=== PATIENT | female | born 1995 | race Caucasian/White ===

== ENCOUNTER 2019-08-05 21:16 | Inpatient (IN) | payer SELFPAY ==
[2019-08-05 22:13] LABS: #Eosinphils 0.1 thou/uL (0.0-0.7); #Monocytes 0.6 thou/uL (0.11-0.59); #Neutrophils 4.6 thou/uL (1.40-6.50); %Basophils 0.3 % (0.0-1.0); %Eosinophils 1.7 % (0.0-10.0); %Lymphocytes 15.8 % (21.0-51.0); %Monocytes 9.5 % (0.0-10.0); %Neutrophils 72.8 % (42.0-75.0); Mean Corpuscular Hemoglobin 29.8 pg (27.0-31.0); Mean Corpuscular Volume 87.4 fL (78.0-98.0); Mean Platelet Volume 8.5 fL (7.4-10.4); Platelet Count 203 thou/uL (130-400); RBC Distribution Width 12.3 % (11.5-14.5); Red Blood Cell (RBC) Count 4.03 mill/uL (4.20-5.40); White Blood Cell (WBC) Count 6.3 thou/uL (4.8-10.8)
[2019-08-05 22:30] LABS: Acetaminophen Less than 6.0 mcg/mL (10.0-30.0); Alcohol Less than 10 mg/dL (Less than 10); Salicylate Less than 8.0 mg/dL (15.0-30.0)
[2019-08-05 22:37] LABS: Bilirubin Negative (Negative); Blood, Urine Negative (Negative); Clarity Clear (Clear); Glucose, Urine (Dipstick) Normal (Negative); Leukocyte Negative Leu/uL (Negative); Nitrite Negative (Negative); Pregu Control Background? CLEAR/WHITE (CLR/WHITE); Pregu Control Bar Appear? YES (CONTROL BAR); Protein, Urine (Dipstick) Negative (Neg-Trace); Specific Gravity 1.008 (1.002-1.036); Urobilinogen Normal mg/dL (Less than 2)
[2019-08-05 22:38] LABS: Pregnancy Test - Urine (BHCG) Negative (Negative)
[2019-08-05 22:38] LABS: ALT (SGPT) 7 U/L (8-55); AST (SGOT) 11 U/L (5-34); Albumin 3.9 g/dL (3.5-5.0); Alkaline Phosphatase 70 U/L (40-110); Anion Gap 13 mmol/L (10-20); BUN (Urea Nitrogen) 7 mg/dL (7.0-18.7); Bilirubin, Total 0.2 mg/dL (0.2-1.2); CK (CPK) 81 U/L (29-168); Calc. Creatinine Clearance 0 mL/min (70-130); Calcium 8.5 mg/dL (7.8-10.44); Carbon Dioxide 22 mmol/L (22-29); Chloride 110 mmol/L (98-107); Estimated GFR-MDRD Greater than 90; Globulin 2.2 g/dL (2.4-3.5); Glucose 91 mg/dL (70-105); Potassium 3.6 mmol/L (3.5-5.1); Protein, Total 6.1 g/dL (6.0-8.3); Sodium 141 mmol/L (136-145)
[2019-08-05 22:53] LABS: Amphetamine Detected (NotDetected); Barbiturates Screen Not Detected (NotDetected); Benzodiazepine Screen Not Detected (NotDetected); Cocaine Metabolite Screen Not Detected (NotDetected); Medtox Control Line Valid? VALID (VALID); Medtox Reader # READER 4; Methadone Not Detected (NotDetected); Methamphetamine Detected (NotDetected); Opiate Screen Not Detected (NotDetected); Oxycodone Screen Not Detected (NotDetected); Phencyclidine (PCP) Not Detected (NotDetected); THC/Cannabinoid Screen Not Detected (NotDetected); Tricyclic Screen Detected (NotDetected)
[2019-08-05] MEDS ORDERED: Ondansetron ODT 4 MG TAB PO PRN (23:29)
[2019-08-05] MEDS ORDERED: Ondansetron PF 4 MG/2 ML Vial IVP PRN (23:29)
[2019-08-06] MEDS ORDERED: Sodium Chloride 0.9% 1,000 ML IV SCH ×2 (00:15→03:00)
--- NOTE | 2019-08-06 00:29 | PDOC.EVN ---
Event Note - Event Note Event Note: Patient discussed with CRUZ Hutchins. She smoked marijuana and took 1,000 mg of Seroquel in a deliberate suicide attempt. She is somnolent but arousable and will answer some questions. Mostly, she just wants to be left alone. She has a bit of a cough, but lungs are clear. Heart is regular. Poison control was called by the ED physician and the recommendation is for 12 hours of observation or until her mental status improves. Will admit to IMCU for closer monitoring and continue to hydrate. Will need [facility] eval prior to discharge.
[2019-08-06 01:39] LABS: Lactic Acid 1.1 mmol/L (0.5-2.2)
[2019-08-06] MEDS ORDERED: Benzonatate 100 MG CAP ONE (01:47)
[2019-08-06] MEDS: Benzonatate 100 MG CAP PO PRN (02:28)
[2019-08-06] MEDS ORDERED: Lorazepam 2 MG/ML VIAL SLOW IVP PRN (02:35)
[2019-08-06 04:17] LABS: Anion Gap 11 mmol/L (10-20); BUN (Urea Nitrogen) 4 mg/dL (7.0-18.7); Calc. Creatinine Clearance 0 mL/min (70-130); Calcium 7.8 mg/dL (7.8-10.44); Carbon Dioxide 20 mmol/L (22-29); Chloride 112 mmol/L (98-107); Estimated GFR-MDRD Greater than 90; Glucose 91 mg/dL (70-105); Potassium 3.4 mmol/L (3.5-5.1); Sodium 140 mmol/L (136-145)
[2019-08-06 04:55] LABS: #Eosinphils 0.1 thou/uL (0.0-0.7); #Lymphocytes 1.3 thou/uL (1.20-3.40); #Monocytes 0.6 thou/uL (0.11-0.59); %Basophils 0.7 % (0.0-1.0); %Lymphocytes 21.2 % (21.0-51.0); %Monocytes 9.3 % (0.0-10.0); %Neutrophils 67.8 % (42.0-75.0); Hemoglobin 10.6 g/dL (12.0-16.0); Mean Corpuscular HGB CONC 33.8 g/dL (32.0-36.0); Mean Corpuscular Hemoglobin 29.4 pg (27.0-31.0); Mean Platelet Volume 8.7 fL (7.4-10.4); Platelet Count 183 thou/uL (130-400); RBC Distribution Width 12.2 % (11.5-14.5); White Blood Cell (WBC) Count 5.9 thou/uL (4.8-10.8)
--- NOTE | 2019-08-06 07:59 | RAD ---
PORTABLE CHEST: INDICATION: Cough. FINDINGS: Patchy infiltrate in the right lower lung is noted. Heart and mediastinum unremarkable. The lung lofton are otherwise clear. IMPRESSION: Patchy right lower lung infiltrate consistent with pneumonia. Followup recommended. POS: [facility]
[2019-08-06] MEDS ORDERED: Famotidine/PF 20 mg/2ml Vial SLOW IVP SCH (09:00)
[2019-08-06 09:13] LABS: Troponin I Less than 0.010 ng/mL (< 0.028)
[2019-08-06] MEDS: 1/2 NS w/KCL 20 mEq 1,000 ML IV SCH (10:31)
--- NOTE | 2019-08-06 11:08 | PDOC.HOSPP ---
- Subjective Encounter Date: 08/06/19 Encounter Time: 11:08 Subjective: Patient drowsy from her seroquel overdose. However, arousable. She states she took the seroquel to sleep. Denies SI or HI. Reports using marijuana, smoking cigarettes and meth. No CP, SOB. - Objective Vital Signs & Weight: Vital Signs (12 hours) Temp Pulse Ox 08/06/19 07:58 99 08/06/19 06:55 100.5 F H 08/06/19 06:33 98 Weight Weight 141 lb 1.533 oz Most Recent Monitor Data Heart Rate from ECG 104 NIBP 126/74 NIBP BP-Mean 91 Respiration from ECG 23 SpO2 97 I&O: 08/05/19 08/06/19 08/07/19 06:59 06:59 06:59 Output Total 1000 0 Balance -1000 0 Result Diagrams: 08/06/19 03:47 08/06/19 03:47 Hospitalist ROS - Medication Medications: Active Medications Generic Name Dose Route Start Last Admin Trade Name Freq PRN Reason Stop Dose Admin Benzonatate 100 mg 08/06/19 01:19 08/06/19 02:28 Tessalon PO 100 mg Q8H PRN Administration Cough Potassium Chloride/Sodium Chloride 1,000 mls @ 100 mls/hr 08/06/19 08:00 10:31 1/2 Ns W/Kcl 20 Meq IV 1,000 mls .Q10H HEIDI Administration - Exam General Appearance: ill appearing General - other findings: drowsy; yet arousable ENT: normocephalic atraumatic, no oropharyngeal lesions Neck: supple, no thyromegaly, no lymphadenopathy Heart: no murmur, no gallops, no rubs Heart - other findings: tachycardia present Respiratory: CTAB, no wheezes, no rales, normal chest expansion Gastrointestinal: soft, non-tender, non-distended, normal bowel sounds Hosp A/P (1) Overdose Code(s): T50.901A - POISONING BY UNSP DRUG/MEDS/BIOL SUBST, ACCIDENTAL, INIT Status: Acute Qualifiers: Encounter type: initial encounter Injury intent: undetermined intent Qualified Code(s): T50.904A - Poisoning by unspecified drugs, medicaments and biological substances, undetermined, initial encounter Plan: Patient denies SI/HI Reports she just wanted to sleep Continue IVF and one-on-one observation Once medically stable, [facility] evaluation to determine if she needs inpatient psych hospitalization High risk due to risk of lethal arrhythmias (2) Pneumonia Code(s): J18.9 - PNEUMONIA, UNSPECIFIED ORGANISM Status: Acute Qualifiers: Pneumonia type: due to unspecified organism Laterality: right Lung location: lower lobe of lung Qualified Code(s): J18.9 - Pneumonia, unspecified organism Plan: CXR with RLL infiltrate Start PO cefdinir and PO azithromycin Duonebs PRN (3) Methamphetamine abuse Code(s): F15.10 - OTHER STIMULANT ABUSE, UNCOMPLICATED Status: Chronic Plan: Pt. reports and UDS positive for meth Has tachycardia Cycle trops Counselled regarding cessation Continue telemetry Transfer out of [facility] (4) Tobacco abuse Code(s): Z72.0 - TOBACCO USE Status: Chronic Plan: Counselled regarding cessation (5) Hypokalemia Code(s): E87.6 - HYPOKALEMIA Status: Acute Plan: Replace in IVF - Plan DVT proph w/lovenox
[2019-08-06] MEDS ORDERED: Doxycycline 100 MG CAP PO SCH (11:30)
[2019-08-06] MEDS ORDERED: Cefdinir 300 MG CAP PO SCH (11:30)
--- NOTE | 2019-08-06 11:33 | HP ---
TIME OF ASSESSMENT: 2300 REASON FOR ADMISSION: Somnolent secondary to intentional drug overdose. PRIMARY CARE PHYSICIAN: None. HISTORY OF PRESENT ILLNESS: Ms. Julio is a 23-year-old woman who presents to the emergency department following an intentional drug overdose of Seroquel. She apparently took 1000 mg, and per ED reports it was in an attempt to end her life. She also smoked marijuana. The patient is minimally communicative at this present time. Though she is drowsy, she is easily woken and responsive to verbal stimuli, able to answer questions appropriately, but asking to be left alone. She is complaining of feeling cold. Denies any pain. Apparently has not had any nausea or vomiting. Further review of systems could not be fully addressed. In the emergency department, she had laboratory studies done showing a negative acetaminophen level as well as salicylate level. She had a urine drug screen done that was positive for methamphetamine, amphetamine, and tricyclics, otherwise negative. She was noted to have a negative urine test. Remaining labs showed a white count of 6.3, hemoglobin 12, and neutrophils 72.8%. Sodium 141, potassium 3.6, BUN 7, creatinine 0.68, and GFR greater than 90. LFTs unremarkable. She has been given 2 L of normal saline. She had an EKG done which is reportedly unremarkable. The patient was advised admission to [facility] given somnolence and tachycardia. Apparently, she had an EKG that showed QTc of 465. PAST MEDICAL HISTORY: Asthma. PAST SURGICAL HISTORY: None. SOCIAL HISTORY: Patient abuses drugs, including marijuana and methamphetamine as per urine drug screen. Denies alcohol use. Denies tobacco use. She lives at home with her family. ALLERGIES: NO KNOWN DRUG ALLERGIES. CURRENT MEDICATIONS: Unknown. PHYSICAL EXAMINATION: GENERAL: Patient appears drowsy, but well developed, and in no acute distress. She is resting comfortably. VITAL SIGNS: Temperature 98.5, pulse 112, blood pressure 108/68, respirations 17, and O2 saturation 100% on room air. HEENT: Normocephalic and atraumatic. Pupils are pinpoint bilaterally. LUNGS: Clear to auscultation bilaterally without wheezes, rales, or rhonchi. CARDIAC: Tachycardiac. Regular rate and rhythm. ABDOMEN: Soft, nontender, and nondistended. No guarding or rigidity. Normal bowel sounds present. EXTREMITIES: No lower leg swelling or edema. NEUROLOGIC: Patient is drowsy, but responsive to verbal stimuli and able to answer questions appropriately, but easily agitated and requesting to be left alone. Physical exam limited as patient requesting to be left alone. IMPRESSION AND PLAN: Ms. Julio is a 23-year-old woman who presents with an intentional overdose of Seroquel, who is being admitted to the [facility] due to somnolence and tachycardia. Patient had EKG showing a QTc of 465. Serial EKGs recommended. Mag added on. Patient to undergo [facility] eval once medically cleared. Currently, she is in no acute distress and resting comfortably. She has been given 2 L of normal saline. Repeat laboratory studies in the morning. Of note, case has been discussed with Poison Control by the ED physician. Patient's mother is aware of admission to the hospital and plans to see her in the morning. Code status full. Surrogate decision maker is her mother, Xochitl Role. Case was discussed with Dr. Samayoa, who agrees the upon care as described above. Job ID: [id number]
[2019-08-06 12:42] LABS: Troponin I Less than 0.010 ng/mL (< 0.028)
[2019-08-06] MEDS: Acetaminophen 500 MG TAB PO PRN ×2 (15:46→23:50)
[2019-08-06] MEDS: Doxycycline 100 MG CAP PO SCH (21:38)
[2019-08-06] MEDS: Cefdinir 300 MG CAP PO SCH (21:38)
[2019-08-07] MEDS ORDERED: D5 1/2 NS w/20 mEq KCL 0 ML ONE (00:57)
[2019-08-07] MEDS: 1/2 NS w/KCL 20 mEq 1,000 ML IV SCH (01:26)
[2019-08-07 05:32] LABS: #Eosinphils 0.1 thou/uL (0.0-0.7); #Lymphocytes 1.3 thou/uL (1.20-3.40); #Monocytes 0.6 thou/uL (0.11-0.59); #Neutrophils 2.9 thou/uL (1.40-6.50); %Basophils 0.9 % (0.0-1.0); %Eosinophils 2.5 % (0.0-10.0); %Monocytes 12.5 % (0.0-10.0); %Neutrophils 58.1 % (42.0-75.0); Hemoglobin 11.6 g/dL (12.0-16.0); Mean Corpuscular HGB CONC 33.9 g/dL (32.0-36.0); Mean Corpuscular Hemoglobin 29.8 pg (27.0-31.0); Mean Corpuscular Volume 87.9 fL (78.0-98.0); Mean Platelet Volume 8.8 fL (7.4-10.4); Platelet Count 185 thou/uL (130-400); RBC Distribution Width 12.4 % (11.5-14.5); Red Blood Cell (RBC) Count 3.89 mill/uL (4.20-5.40); White Blood Cell (WBC) Count 4.9 thou/uL (4.8-10.8)
[2019-08-07 05:51] LABS: ALT (SGPT) 7 U/L (8-55); AST (SGOT) 10 U/L (5-34); Albumin 3.4 g/dL (3.5-5.0); Alkaline Phosphatase 67 U/L (40-110); Anion Gap 13 mmol/L (10-20); BUN (Urea Nitrogen) 9 mg/dL (7.0-18.7); Bilirubin, Total 0.2 mg/dL (0.2-1.2); Calc. Creatinine Clearance 136 mL/min (70-130); Calcium 8.2 mg/dL (7.8-10.44); Carbon Dioxide 21 mmol/L (22-29); Chloride 109 mmol/L (98-107); Estimated GFR-MDRD Greater than 90; Globulin 2.3 g/dL (2.4-3.5); Glucose 103 mg/dL (70-105); Potassium 3.8 mmol/L (3.5-5.1); Protein, Total 5.7 g/dL (6.0-8.3); Sodium 139 mmol/L (136-145)
[2019-08-07] MEDS ORDERED: Sodium Chloride 0.45% 1,000 ML IV SCH (08:15)
[2019-08-07] MEDS: Cefdinir 300 MG CAP PO SCH ×2 (08:30→21:09)
[2019-08-07] MEDS: Doxycycline 100 MG CAP PO SCH ×2 (08:30→21:09)
--- NOTE | 2019-08-07 11:20 | PDOC.HOSPP ---
- Subjective Encounter Date: 08/07/19 Encounter Time: 11:10 Subjective: Patient reports feeling better today without any headaches, palpitations, chest pain, shortness of breath, dizziness. She states that she would like to go home. No N/V/D/C. Able to tolerate diet well. - Objective Vital Signs & Weight: Vital Signs (12 hours) Temp Pulse Resp BP Pulse Ox 08/07/19 08:00 96 08/07/19 07:25 98.3 F 106 H 15 119/70 96 08/07/19 04:42 99 F 97 18 105/63 95 08/07/19 00:10 100.9 F H 108 H 16 115/73 99 Weight Weight 141 lb 1.533 oz Most Recent Monitor Data Heart Rate from ECG 101 NIBP 101/78 NIBP BP-Mean 85 Respiration from ECG 22 SpO2 99 I&O: 08/06/19 08/07/19 08/08/19 06:59 06:59 06:59 Intake Total 120 Output Total 1000 800 Balance -1000 -680 Result Diagrams: 08/07/19 05:01 08/07/19 05:01 Hospitalist ROS - Medication Medications: Active Medications Generic Name Dose Route Start Last Admin Trade Name Freq PRN Reason Stop Dose Admin Acetaminophen 500 mg 08/06/19 07:53 08/06/19 23:50 Tylenol PO 500 mg Q6H PRN Administration Pain Benzonatate 100 mg 08/06/19 01:19 08/06/19 02:28 Tessalon PO 100 mg Q8H PRN Administration Cough Cefdinir 300 mg 08/06/19 21:00 08/07/19 08:30 Omnicef PO 300 mg BID HEIDI Administration Doxycycline Hyclate 100 mg 08/06/19 21:00 08/07/19 08:30 Vibramycin PO 100 mg BID HEIDI Administration Sodium Chloride 1,000 mls @ 75 mls/hr 08/07/19 08:15 08/07/19 09:42 1/2 Normal Saline IV 1,000 mls .[id number] HEIDI Administration - Exam General Appearance: NAD, awake alert Eye: PERRL, anicteric sclera ENT: normocephalic atraumatic, no oropharyngeal lesions, moist mucosa Neck: supple, symmetric, no JVD, no thyromegaly, no lymphadenopathy, no carotid bruit Heart: no murmur, no gallops, no rubs, normal peripheral pulses Heart - other findings: tachycardia present Respiratory: CTAB, no wheezes, no rales, normal chest expansion, no tachypnea Gastrointestinal: soft, non-tender, non-distended, normal bowel sounds, no palpable masses Hosp A/P (1) Overdose Code(s): T50.901A - POISONING BY UNSP DRUG/MEDS/BIOL SUBST, ACCIDENTAL, INIT Status: Acute Qualifiers: Encounter type: initial encounter Injury intent: undetermined intent Qualified Code(s): T50.904A - Poisoning by unspecified drugs, medicaments and biological substances, undetermined, initial encounter (2) Pneumonia Code(s): J18.9 - PNEUMONIA, UNSPECIFIED ORGANISM Status: Acute Qualifiers: Pneumonia type: due to unspecified organism Laterality: right Lung location: lower lobe of lung Qualified Code(s): J18.9 - Pneumonia, unspecified organism (3) Methamphetamine abuse Code(s): F15.10 - OTHER STIMULANT ABUSE, UNCOMPLICATED Status: Chronic (4) Tobacco abuse Code(s): Z72.0 - TOBACCO USE Status: Chronic (5) Hypokalemia Code(s): E87.6 - HYPOKALEMIA Status: Resolved - Plan continue antibiotics, out of bed/ambulate, dc tele Hosp A/P (1) Overdose Code(s): T50.901A - POISONING BY UNSP DRUG/MEDS/BIOL SUBST, ACCIDENTAL, INIT Status: Acute Qualifiers: Encounter type: initial encounter Injury intent: undetermined intent Qualified Code(s): T50.904A - Poisoning by unspecified drugs, medicaments and biological substances, undetermined, initial encounter Plan: Patient denies SI/HI Continue IVF and one-on-one observation Patient is medically optimized for behavioral health evaluation If cleared by behavioral health, will DC home today DC telemetry (2) Pneumonia Code(s): J18.9 - PNEUMONIA, UNSPECIFIED ORGANISM Status: Acute Qualifiers: Pneumonia type: due to unspecified organism Laterality: right Lung location: lower lobe of lung Qualified Code(s): J18.9 - Pneumonia, unspecified organism Plan: CXR with RLL infiltrate Had fever overnight Continue PO cefdinir and PO azithromycin to finish a 7 day course Duonebs PRN (3) Methamphetamine abuse Code(s): F15.10 - OTHER STIMULANT ABUSE, UNCOMPLICATED Status: Chronic Plan: Has tachycardia Trops negative Counselled regarding cessation (4) Tobacco abuse Code(s): Z72.0 - TOBACCO USE Status: Chronic Plan: Counselled regarding cessation (5) Hypokalemia Resolved
[2019-08-07] MEDS: Benzonatate 100 MG CAP PO PRN (18:27)
[2019-08-07] MEDS: Acetaminophen 500 MG TAB PO PRN (18:27)
[2019-08-08] MEDS: Acetaminophen 500 MG TAB PO PRN (05:28)
[2019-08-08 06:11] LABS: #Eosinphils 0.1 thou/uL (0.0-0.7); #Lymphocytes 1.1 thou/uL (1.20-3.40); #Monocytes 0.6 thou/uL (0.11-0.59); #Neutrophils 3.4 thou/uL (1.40-6.50); %Basophils 0.6 % (0.0-1.0); %Eosinophils 1.3 % (0.0-10.0); %Lymphocytes 21.3 % (21.0-51.0); %Monocytes 10.8 % (0.0-10.0); Hemoglobin 13.5 g/dL (12.0-16.0); Mean Corpuscular HGB CONC 33.8 g/dL (32.0-36.0); Mean Corpuscular Hemoglobin 29.3 pg (27.0-31.0); Mean Corpuscular Volume 86.7 fL (78.0-98.0); Mean Platelet Volume 8.7 fL (7.4-10.4); Platelet Count 189 thou/uL (130-400); RBC Distribution Width 12.2 % (11.5-14.5); White Blood Cell (WBC) Count 5.2 thou/uL (4.8-10.8)
[2019-08-08 06:36] LABS: Anion Gap 13 mmol/L (10-20); BUN (Urea Nitrogen) 6 mg/dL (7.0-18.7); Calc. Creatinine Clearance 132 mL/min (70-130); Calcium 8.9 mg/dL (7.8-10.44); Carbon Dioxide 22 mmol/L (22-29); Chloride 105 mmol/L (98-107); Estimated GFR-MDRD Greater than 90; Glucose 98 mg/dL (70-105); Potassium 3.6 mmol/L (3.5-5.1); Sodium 136 mmol/L (136-145)
[2019-08-08] MEDS: Doxycycline 100 MG CAP PO SCH ×2 (08:56→22:16)
[2019-08-08] MEDS ORDERED: cefTRIAXone\\ROCEPHIN 2 GM in Sodium Chloride 0.9% 100 ML IVPB SCH (09:00)
[2019-08-08] MEDS ORDERED: hydrOXYzine Pamoate 25 mg Capsule PO PRN (09:15)
--- NOTE | 2019-08-08 09:16 | PDOC.HOSPP ---
- Subjective Encounter Date: 08/08/19 Encounter Time: 09:15 Subjective: Patient states that she has nicotine cravings and is requesting to leave the hospital to smoke cigarettes. She reports usually smoking 1 PPD. Reports fever and chills overnight. Has a dry cough but no sputum. No headache, nausea or vomiting. - Objective Vital Signs & Weight: Vital Signs (12 hours) Temp Pulse Resp BP BP Pulse Ox 08/08/19 07:25 98.7 F 99 16 111/62 94 L 08/08/19 07:06 98.2 F 08/08/19 05:10 100.9 F H 08/08/19 04:22 101.2 F H 117 H 20 127/68 93 L 08/07/19 22:49 99.2 F 103 H 20 104/55 L 95 08/07/19 21:47 99.6 F 106 H 16 125/61 99 Weight Weight 141 lb 1.533 oz Most Recent Monitor Data Heart Rate from ECG 101 NIBP 101/78 NIBP BP-Mean 85 Respiration from ECG 22 SpO2 99 I&O: 08/07/19 08/08/19 08/09/19 06:59 06:59 06:59 Intake Total 120 660 Output Total 800 Balance -680 660 Result Diagrams: 08/08/19 05:51 08/08/19 05:51 Hospitalist ROS - Medication Medications: Active Medications Generic Name Dose Route Start Last Admin Trade Name Freq PRN Reason Stop Dose Admin Acetaminophen 500 mg 08/06/19 07:53 08/08/19 05:28 Tylenol PO 500 mg Q6H PRN Administration Pain Benzonatate 100 mg 08/06/19 01:19 08/07/19 18:27 Tessalon PO 100 mg Q8H PRN Administration Cough Doxycycline Hyclate 100 mg 08/06/19 21:00 08/08/19 08:56 Vibramycin PO 100 mg BID HEIDI Administration Ceftriaxone Sodium 2 gm/ 100 mls @ 200 mls/hr 08/08/19 09:00 08/08/19 08:53 Sodium Chloride IVPB 100 mls 0900 HEIDI Administration - Exam General Appearance: NAD, awake alert ENT: normocephalic atraumatic, no oropharyngeal lesions, moist mucosa Neck: supple, symmetric, no JVD, no thyromegaly, no lymphadenopathy Heart: no murmur, no gallops, no rubs, normal peripheral pulses Heart - other findings: tachycardia present Respiratory: CTAB, no wheezes, no rales, no ronchi, normal chest expansion, no tachypnea, normal percussion Gastrointestinal: soft, non-tender, non-distended, normal bowel sounds Extremities: no cyanosis, no clubbing, no edema Hosp A/P (1) Overdose Code(s): T50.901A - POISONING BY UNSP DRUG/MEDS/BIOL SUBST, ACCIDENTAL, INIT Status: Acute Qualifiers: Encounter type: initial encounter Injury intent: undetermined intent Qualified Code(s): T50.904A - Poisoning by unspecified drugs, medicaments and biological substances, undetermined, initial encounter (2) Pneumonia Code(s): J18.9 - PNEUMONIA, UNSPECIFIED ORGANISM Status: Acute Qualifiers: Pneumonia type: due to unspecified organism Laterality: right Lung location: lower lobe of lung Qualified Code(s): J18.9 - Pneumonia, unspecified organism (3) Methamphetamine abuse Code(s): F15.10 - OTHER STIMULANT ABUSE, UNCOMPLICATED Status: Chronic (4) Tobacco abuse Code(s): Z72.0 - TOBACCO USE Status: Chronic (5) Hypokalemia Code(s): E87.6 - HYPOKALEMIA Status: Resolved - Plan dc tele Hosp A/P (1) Overdose Code(s): T50.901A - POISONING BY UNSP DRUG/MEDS/BIOL SUBST, ACCIDENTAL, INIT Status: Acute Qualifiers: Encounter type: initial encounter Injury intent: undetermined intent Qualified Code(s): T50.904A - Poisoning by unspecified drugs, medicaments and biological substances, undetermined, initial encounter Plan: Patient evaluated by behavioral health and felt to require inpatient psychiatric hospitalization [facility]OT initiated Once patient has a bed available, will transfer to inpatient psych (2) Pneumonia Code(s): J18.9 - PNEUMONIA, UNSPECIFIED ORGANISM Status: Acute Qualifiers: Pneumonia type: due to unspecified organism Laterality: right Lung location: lower lobe of lung Qualified Code(s): J18.9 - Pneumonia, unspecified organism Plan: CXR with RLL infiltrate Has persistent fevers. Switch to IV abx while in the hospital Will obtain influenza and viral respiratory panel Continue abx to finish a 7 day course Duonebs PRN (3) Methamphetamine abuse Code(s): F15.10 - OTHER STIMULANT ABUSE, UNCOMPLICATED Status: Chronic Plan: Has tachycardia Trops negative Counselled regarding cessation (4) Tobacco abuse Code(s): Z72.0 - TOBACCO USE Status: Chronic Plan: Counselled regarding cessation Patient requesting nicoderm patch Ordered NRT (5) Hypokalemia Resolved
[2019-08-08] MEDS: Nicotine 14 MG PATCH TD SCH (10:02)
[2019-08-08] MEDS: Benzonatate 100 MG CAP PO PRN ×2 (12:37→22:16)
[2019-08-08] MEDS: Guaifenesin DM 100-10/5 ML UDCUP PO PRN (14:47)
[2019-08-09 05:21] LABS: #Eosinphils 0.1 thou/uL (0.0-0.7); #Lymphocytes 1.9 thou/uL (1.20-3.40); #Monocytes 0.6 thou/uL (0.11-0.59); #Neutrophils 1.7 thou/uL (1.40-6.50); %Eosinophils 1.8 % (0.0-10.0); %Lymphocytes 45.2 % (21.0-51.0); %Monocytes 12.9 % (0.0-10.0); %Neutrophils 39.2 % (42.0-75.0); Hemoglobin 13.6 g/dL (12.0-16.0); Mean Corpuscular HGB CONC 32.9 g/dL (32.0-36.0); Mean Corpuscular Hemoglobin 28.4 pg (27.0-31.0); Mean Corpuscular Volume 86.2 fL (78.0-98.0); Mean Platelet Volume 8.5 fL (7.4-10.4); Platelet Count 212 thou/uL (130-400); RBC Distribution Width 12.3 % (11.5-14.5); Red Blood Cell (RBC) Count 4.78 mill/uL (4.20-5.40); White Blood Cell (WBC) Count 4.3 thou/uL (4.8-10.8)
[2019-08-09 05:38] LABS: Anion Gap 13 mmol/L (10-20); BUN (Urea Nitrogen) 8 mg/dL (7.0-18.7); Calc. Creatinine Clearance 136 mL/min (70-130); Calcium 9.2 mg/dL (7.8-10.44); Carbon Dioxide 24 mmol/L (22-29); Chloride 105 mmol/L (98-107); Estimated GFR-MDRD Greater than 90; Glucose 92 mg/dL (70-105); Potassium 3.8 mmol/L (3.5-5.1); Sodium 138 mmol/L (136-145)
[2019-08-09] MEDS ORDERED: Cefdinir 300 MG CAP PO SCH (09:00)
[2019-08-09] MEDS: Doxycycline 100 MG CAP PO SCH (09:24)
[2019-08-09] MEDS: Nicotine 14 MG PATCH TD SCH (09:24)
[2019-08-09] MEDS: Guaifenesin DM 100-10/5 ML UDCUP PO PRN (11:34)
[2019-08-09] MEDS: Benzonatate 100 MG CAP PO PRN (11:34)
[2019-08-09 12:26] VITALS: BP 98/64; TEMP 97.4
--- NOTE | 2019-08-10 09:42 | DIS ---
DATE OF ADMISSION: 08/06/2019 DATE OF DISCHARGE: 08/09/2019 ADMISSION DIAGNOSES: 1. Overdose of Seroquel with suicidal intention. 2. Methamphetamine use. DISCHARGE DIAGNOSES: 1. Overdose of Seroquel - the patient has been cleared by Psychiatry to be discharged. 2. Pneumonia. 3. Metapneumovirus infection. 4. Methamphetamine abuse. 5. Tobacco abuse. 6. Hypokalemia - resolved. CONSULTATIONS: [facility]. PERTINENT PROCEDURE: The patient underwent a chest x-ray, which revealed pneumonia. HOSPITAL COURSE: The patient is a 23-year-old female with a history of tobacco abuse and methamphetamine use, who presented to the Emergency Department after consuming Seroquel as the patient stated that she had trouble falling asleep. The patient was admitted to the hospital. She was given intravenous fluids. The patient was found to have tachycardia related to methamphetamine. The patient was evaluated by [facility]. Initially, the patient was not felt to have a safety plan. However, after talking to her , the patient was felt safe to be released to the care of her with outpatient followup with psychiatry. The patient had fevers during hospital stay. She was placed on intravenous antibiotic therapy. Her viral testing was positive for metapneumovirus. Her fevers have resolved. The patient is on p.o. antibiotic therapy. As the patient's fevers have resolved and she is back to baseline and has been cleared by Psychiatry, the patient has been deemed stable to be discharged home today. The patient has been given a prescriptions to finish one week course of oral antibiotic therapy for pneumonia. On the day of discharge, the patient is sitting in the bed and appears to be in no acute distress. Auscultation of the lungs reveals clear breath sounds bilaterally. DISCHARGE INSTRUCTIONS: 1. Discharge disposition. Home. 2. Discharge medications - reconciled. New medications include nicotine patch, cefdinir, and doxycycline. 3. Followup. Dr. Anderson in 1 to 2 weeks. 4. Discharge activity - as tolerated. 5. Discharge diet - regular diet. TIME SPENT: Total time taken for discharge, 40 minutes. Job ID: [id number]
--- NOTE | 2019-08-10 21:51 | PQF ---
Yvette Julio RAMESH [id number] CLINICAL DOCUMENTATION CLARIFICATION FORM: POST DISCHARGE Addendum to original discharge summary date: ____ Late entry note date: __ DATE: 08/10/19 ATTN: Chester Arreguin Please exercise your independent, professional judgment in responding to the clarification form. Clinical indicators are provided on the bottom of this form for your review Please check appropriate box(s): [ ] Acute Toxic Encephalopathy [ ] Drug-induced Encephalopathy [ ] Acute Metabolic Encephalopathy [ ] Transient Alteration of Awareness [ ] Other diagnosis [ ] Unable to determine In addition, please specify: Present on Admission (POA): [ ] Yes [ ] No [ ] Unable to determine For continuity of documentation, please document condition throughout progress notes and discharge summary. Thank You. CLINICAL INDICATORS - SIGNS / SYMPTOMS / LABS H&P p1 08/06 Debbei SUBRAMANIAN presents to the emergency department following an intentional drug overdose of Seroquel. She apparently took 1000 mg, and per ED reports it was in an attempt to end her life. H&P p1 08/06 Debbie SUBRAMANIAN Though she is drowsy, she is easily woken and response to verbal stimuli, able to answer questions appropriately, but asking to be left alone. H&P p1 08/06 Debbie SUBRAMANIAN She had a urine drug screen done that was positive for methamphetamine, amphetamine, and tricyclic otherwise negative. RISK FACTORS H&P p1 08/06 Lewis 23 year old woman H&P p1 08/06 Lewis Somnolent secondary to intentional drug overdose TREATMENTS: H&P p1 08/06 Debbie Admit to IMCU H&P p1 08/06 Lewis She has been given 2 L of normal saline. H&P p2 08/06 Lewis for [facility] evaluation H&P p2 08/06 Lewis repeat laboratory studies (This form is maintained as a part of the permanent medical record) 2014 [employer]. All Rights Reserved [email or web address] [not provided] [email or web address]
== END 2019-08-09 14:10 | disposition home or self-care (01) | DRG 917 ==
LOC: ERS 21:16 → ERHOLD 08-06 00:09 → CCU 08-06 05:58 → 2SE 08-06 15:35
PROVIDERS: ADMIT Internal Medicine; ATTEND Internal Medicine
DX: T43.592A Poisoning by other antipsychotics and neuroleptics, intentional self-harm, initial encounter (principal); J18.9 Pneumonia, unspecified organism; F15.10 Other stimulant abuse, uncomplicated; B97.81 Human metapneumovirus as the cause of diseases classified elsewhere; E87.6 Hypokalemia; R00.0 Tachycardia, unspecified; J45.909 Unspecified asthma, uncomplicated; F12.10 Cannabis abuse, uncomplicated; T40.7X2A Poisoning by cannabis (derivatives), intentional self-harm, initial encounter; R40.0 Somnolence; F17.210 Nicotine dependence, cigarettes, uncomplicated; Z79.899 Other long term (current) drug therapy
CPT/HCPCS: 36415; 71045; 80048; 80053; 80306; 80307; 81003; 81025; 82550; 83605; 83735; 84439; 84443; 84484; 85025; 87040; 87633; 87804; 93005; 94640; 96360; J0696; J3480; J3490; J7620